=== PATIENT | female | born 1940 | race Caucasian/White ===

== ENCOUNTER 2019-04-02 10:03 | Outpatient (CLI) | payer OTHER | END 2019-04-02 10:16 | disposition home or self-care (01) | LOC: NUCLEAR 10:03 | DX: M81.0 Age-related osteoporosis without current pathological fracture (principal) ==

== ENCOUNTER 2021-07-08 11:05 | Outpatient (CLI) | payer OTHER | END 2021-07-08 11:18 | disposition home or self-care (01) | LOC: MAMO-SONO 11:05 | PROVIDERS: ATTEND Student in an Organized Health Care Education/Training Program | DX: N60.11 Diffuse cystic mastopathy of right breast (principal); N60.12 Diffuse cystic mastopathy of left breast; Z12.31 Encounter for screening mammogram for malignant neoplasm of breast; N64.89 Other specified disorders of breast ==

== ENCOUNTER → 2021-10-05 | Outpatient (CLI) | payer OTHER | END | disposition home or self-care (01) | LOC: NUCLEAR 07:00 | PROVIDERS: ATTEND Internal Medicine Cardiovascular Disease | DX: R07.89 Other chest pain (principal); I20.9 Angina pectoris, unspecified | CPT/HCPCS: 78452; 93017; A9500; J0153 ==

== ENCOUNTER 2021-12-08 13:03 | Outpatient (CLI) | payer OTHER | END 2021-12-08 13:06 | disposition home or self-care (01) | LOC: RAD 13:03 | PROVIDERS: ATTEND Specialist | DX: J45.998 Other asthma (principal) ==